=== PATIENT | female | born 1975 | race Caucasian/White ===

== ENCOUNTER 2019-02-16 21:36 | Emergency (ER) | payer MEDICAID ==
[~2019-02-16] VITALS: Ht 162.6 cm; Wt 61.2 kg
[2019-02-16 21:36] VITALS: BP_SYST 126
[2019-02-16] MEDS ORDERED: IBUPROFEN 600 MG TABLET PO ONE (22:45)
[2019-02-16 23:17] VITALS: BP_SYST 122
== END 2019-02-16 23:17 | disposition home or self-care (01) ==
LOC: SED 21:36
DX: S33.5XXA Sprain of ligaments of lumbar spine, initial encounter (principal); S13.9XXA Sprain of joints and ligaments of unspecified parts of neck, initial encounter; S23.3XXA Sprain of ligaments of thoracic spine, initial encounter; S83.92XA Sprain of unspecified site of left knee, initial encounter; V43.52XA Car driver injured in collision with other type car in traffic accident, initial encounter; Y93.89 Activity, other specified; Y92.89 Other specified places as the place of occurrence of the external cause; Y99.8 Other external cause status
CPT/HCPCS: 99283

== ENCOUNTER 2023-01-06 17:58 | Emergency (ER) | payer MEDICAID, OTHER ==
[~2023-01-06] VITALS: Ht 162.6 cm; Wt 56.7 kg
[2023-01-06 19:10] VITALS: BP_SYST 127; PULSE 70; RESP 19; TEMP 97.9; O2SAT 100
[2023-01-06] MEDS ORDERED: KETOROLAC TROMETHAMINE 30 MG VIAL IM ONE (22:00)
[2023-01-06] MEDS ORDERED: NABU-140 PO (23:33)
[2023-01-06] MEDS ORDERED: ZAN4 PO (23:33)
[2023-01-06 23:44] VITALS: BP_SYST 148; PULSE 72; RESP 20; TEMP 98.3; O2SAT 100
== END 2023-01-06 23:44 | disposition home or self-care (01) ==
LOC: SED 17:58
DX: M54.16 Radiculopathy, lumbar region (principal); M54.50 Low back pain, unspecified; Z79.899 Other long term (current) drug therapy
CPT/HCPCS: 99283; 72100; 96372; J1885